=== PATIENT | male | born 1960 | race Caucasian/White ===

== ENCOUNTER 2019-08-31 03:12 | Emergency (ER) | payer OTHER ==
[~2019-08-31] VITALS: Ht 160 cm; Wt 83.1 kg
[2019-08-31 03:22] VITALS: BP 184/89
[2019-08-31] MEDS ORDERED: IPRATROPIUM/ALBUTEROL 0.5-3(2.5)MG/3ML NEB HHN ONE (04:15)
== END 2019-08-31 05:23 | disposition home or self-care (01) ==
LOC: ER 03:44
DX: R06.02 Shortness of breath (principal)
CPT/HCPCS: 71045; 94640; 99283; Z7610